=== PATIENT | male | born 1975 | race Caucasian/White ===

== ENCOUNTER 2024-02-26 08:57 | Outpatient (CLI) | payer BC | END 2024-02-26 08:58 | disposition home or self-care (01) | LOC: EDSEX 08:57 → CT 08:57 | PROVIDERS: ATTEND Internal Medicine Nephrology | DX: N18.30 Chronic kidney disease, stage 3 unspecified (principal); N20.0 Calculus of kidney | CPT/HCPCS: 74176 ==